=== PATIENT | female | born 1990 | race Caucasian/White ===

== ENCOUNTER → 2024-05-28 11:01 | Outpatient (CLI) | payer OTHER, SELFPAY ==
[2024-05-28 13:59] LABS: Pregnancy Test Urine Negative (Negative)
== END ==
PROVIDERS: Referring Provider Nurse Practitioner Family; Visit Provider Nurse Practitioner Family
DX: R30.0 Dysuria (principal); N94.9 Unspecified condition associated with female genital organs and menstrual cycle
CPT/HCPCS: 81025; 87086; 87210

== ENCOUNTER → 2024-06-23 16:02 | Outpatient (CLI) | payer OTHER, SELFPAY ==
[2024-06-24 14:39] LABS: Candida species Negative (Negative); Gardnerella vaginalis Negative (Negative); Trichomoas vaginalis Negative (Negative)
== END ==
LOC: LAB 16:02
PROVIDERS: Visit Provider Student in an Organized Health Care Education/Training Program
DX: N89.8 Other specified noninflammatory disorders of vagina (principal)
CPT/HCPCS: 87480; 87510; 87660

== ENCOUNTER → 2024-08-14 11:12 | Outpatient (CLI) | payer OTHER, SELFPAY ==
[2024-08-15 14:12] LABS: Trichomoas vaginalis Negative (Negative)
== END ==
PROVIDERS: Visit Provider Obstetrics & Gynecology
DX: N89.8 Other specified noninflammatory disorders of vagina (principal)
CPT/HCPCS: 87480; 87510; 87660